=== PATIENT | male | born 1955 | race African-American/Black ===

== ENCOUNTER 2019-06-24 17:52 | Emergency (ER) | payer MEDICARE ==
--- OUTSIDE RECORDS SUMMARY | 2019-06-24 18:13 | XMS REPORT | Continuity of Care Document ---
:1955 External Reference #:[id number] Author Name Jordy Romo M.D. (transmitted by agent of provider Jose E Virk) Address [address] [place] [id number] Problems Active Problems Provider Date Temporomandibular joint disorder Jordy Romo M.D. Onset: 08/13/2014 Oropharyngeal dysphagia Jordy Romo M.D. Onset: 08/13/2014 Disorder of gastrointestinal tract Jordy Romo M.D. Onset: 08/13/2014 Acute Eustachian salpingitis, left ear Jordy Romo M.D. Onset: 2014 Sensorineural hearing loss, bilateral Jordy Romo M.D. Onset: 2014 Chronic rhinitis Jordy Romo M.D. Onset: 06/17/2015 Migraine Ventura Desouza MD Onset: 02/06/2016 Idiopathic peripheral neuropathy Ventura Desouza MD Onset: 02/06/2016 Dizziness and giddiness Ventura Desouza MD Onset: 02/06/2016 Coordination problem Ventura Desouza MD Onset: 02/06/2016 Localized, primary osteoarthritis of the Kwan Herron MD Onset: 05/10/2018 hand Contracture of palmar fascia Kwan Herron MD Onset: 05/10/2018 Tinnitus Jordy Romo M.D. Onset: 06/29/2016 Myoclonus Jordy Romo M.D. Onset: 06/29/2016 Social History Type Date Description Comments Sex Unknown Tobacco Use Start: Unknown Never Smoked Cigarettes Tobacco Use Start: Unknown Never Smoked Cigars Tobacco Use Start: Unknown Never Smoked A Pipe Smokeless Tobacco Never Used Smokeless Tobacco ETOH Use Denies alcohol use Tobacco Use Start: Unknown Patient has never smoked Recreational Drug Use Denies Drug Use Smoking Status Reviewed: 06/13/19 Patient has never smoked Allergies, Adverse Reactions, Alerts Active Allergies Reaction Severity Comments Date Morphine Urticaria 08/13/2014 Sodium (Salt) Low Tolerance 05/23/2019 Amoxicillin Nausea and Vomiting 08/13/2014 Environmental 05/23/2019 Sulfa Antibiotics 08/13/2014 Penicillin VK 05/23/2019 Doxycycline Nausea 05/23/2019 Morphine Sulfate 05/23/2019 Medications Active Medications SIG Qnty Indications Ordering Provider Date Vitamin D-3 1 by mouth every Unknown 1000Unit day Capsules Immunizations Description No Information Available Vital Signs Date Vital Result Comment 06/13/2019 11:31am Height 72 inches 6'0" Weight 187.00 lb Heart Rate 68 /min BP Systolic Sitting 124 mmHg BP Diastolic Sitting 76 mmHg Respiratory Rate 18 /min Pain Level 2 O2 % BldC Oximetry 93 % BMI (Body Mass Index) 25.4 kg/m2 05/10/2018 10:51am Height 72 inches 6'0" Weight 183.00 lb Heart Rate 68 /min BP Systolic Sitting 110 mmHg BP Diastolic Sitting 80 mmHg Body Temperature 97.1 F Pain Level 5 BMI (Body Mass Index) 24.8 kg/m2 Results Description No Information Available Procedures Description No Information Available Medical Devices Description No Information Available Encounters Description No Information Available Assessments Date Code Description Provider 06/13/2019 H92.02 Otalgia, left ear Jordy Romo M.D. 06/13/2019 M26.602 Left temporomandibular joint disorder, Jordy Romo M.D. unspecified Plan of Treatment Future Appointment(s):07/03/2019 9:45 am - Matt Duque M.D., FACC, FASNC at [facility]06/13/2019 - Jordy Romo M.D.H92.02 Otalgia, left earM26.602 Left temporomandibular joint disorder, unspecifiedComments: Suggest warm compresses soft diet and ibuprofen, no other abnormality found. Functional Status Description No Information Available Mental Status Description No Information Available Referrals Description No Information Available
[2019-06-24 18:28] LABS: ABS Basophils 0.1 10^3/ul (0-0.2); ABS Eosinophils 0.2 10^3/ul (0-0.6); ABS Lymphocytes 1.8 10^3/ul (1.0-4.8); ABS Monocytes 0.4 10^3/ul (0-0.8); ABS Neutrophils 2.2 10^3/ul (1.5-7.7); Eosinophil % 4.5 %; Hematocrit 41 % (42-52); Hemoglobin 13.6 g/dL (14.0-18.0); Lymphocyte % 38.6 %; Mean Corpuscular HGB Conc 34 g/dL (31-36); Mean Corpuscular Hemoglobin 29 pg (27-31); Mean Corpuscular Volume 86 fL (80-94); Nucleated Red Blood Cells % 0.2; Platelet Count 182 10^3/uL (150-450); Red Blood Count 4.75 10^6 /uL (4.18-5.48); Red Cell Distribution Width 15 % (10-15); White Blood Count 4.8 10^3/uL (3.5-10.8)
--- NOTE | 2019-06-24 18:37 | ED ---
Upper Extremity Pain - HPI Summary HPI Summary: 63-year-old -[place] male with a significant past medical history of prostatitis, BPH, hyperlipidemia, status post left rib surgery for a benign tumor 30+ years ago, T-cell lymphoma in remission, s/p bone marrow biopsy in 2015 presents to the emergency department today complaining of episodic "numbness and tingling and "the upper left arm for approximately 8 days. Patient denies any history of trauma. Patient denies associated onset with exertion, diaphoresis, shortness of breath, chest pain, abdominal pain. Patient denies family history of acute coronary syndrome. Patient is unsure what is causing his symptoms however he believes it may be due to spending increased time at his computer recently. Patient otherwise feels well and denies fever, chest pain, abdominal pain and urination, rash, shortness of breath. - History of Current Complaint Chief Complaint: EDExtremityUpper Stated Complaint: SEVERE PAIN IN LEFT ARM PER PT Time Seen by Provider: 06/24/19 18:17 Hx Obtained From: Patient Onset/Duration: Started Days Ago Timing: Intermittent, Lasting Minutes Severity Initially: Moderate Severity Currently: Moderate Pain Location: Arm Character: Aching Alleviating Factor(s): OTC Meds Associated Signs & Symptoms: Positive: Numbness/Tingling. Negative: Swelling, Redness, Bruising, Fever, Chest Pain, SOB, Back Pain, Diaphoresis, Nausea, Vomiting - Allergies/Home Medications Allergies/Adverse Reactions: Allergies Allergy/AdvReac Type Severity Reaction Status Date / Time morphine Allergy Severe Itching Verified 06/24/19 17:57 amoxicillin Allergy Mild GI Upset Verified 06/24/19 17:57 doxycycline Allergy Mild GI Upset Verified 06/24/19 17:57 Penicillins Allergy Unknown Verified 06/24/19 17:57 Reaction Details Sulfa (Sulfonamide Allergy Unknown Verified 06/24/19 17:57 Antibiotics) Reaction Details PMH/Surg Hx/FS Hx/Imm Hx Endocrine/Hematology History: Denies: Hx Diabetes Cardiovascular History: Reports: Hx Hypercholesterolemia Denies: Hx Congestive Heart Failure, Hx Hypertension, Hx Pacemaker/ICD Respiratory History: Reports: Hx Pneumonia Denies: Hx Asthma, Other Respiratory Problems/Disorders GI History: Reports: Hx Hiatal Hernia History: Reports: Hx Benign Prostatic Hyperplasia Denies: Hx Renal Disease Musculoskeletal History: Reports: Hx Arthritis Denies: Hx Osteoporosis Sensory History: Reports: Hx Contacts or Glasses Denies: Hx Hearing Aid Opthamlomology History: Reports: Hx Contacts or Glasses Psychiatric History: Denies: Hx Panic Disorder - Cancer History Cancer Type, Location and Year: LYMPHOMA IN NECK Hx Chemotherapy: Yes Hx Radiation Therapy: No - Surgical History Surgery Procedure, Year, and Place: STEM CELL TRANSPLANT 12/2014-EXCISION OF BONE IN UPPER BACK 1983(BENIGN TUMOR REMOVED FROM UPPER BACK LEFT SIDE RIB CAGE) . HAMMER TOE SURGERY 2005-HERNIA REPAIR 2009. HERNIA REPAIR Infectious Disease History: No Infectious Disease History: Denies: Traveled Outside the [place] in Last 30 Days - Social History Alcohol Use: None Substance Use Type: Reports: None Smoking Status (MU): Never Smoked Tobacco Review of Systems Constitutional: Negative Eyes: Negative ENT: Negative Cardiovascular: Negative Respiratory: Negative Gastrointestinal: Negative Genitourinary: Negative Musculoskeletal: Negative Skin: Negative Positive: Paresthesia Psychological: Normal All Other Systems Reviewed And Are Negative: Yes Physical Exam - Summary Physical Exam Summary: Inspection of the left upper extremity reveals full range of motion with no gross deformity, edema, ecchymosis. There is no pain with palpation throughout the upper extremity. Radial pulses 2+ bilaterally. Negative empty can, [place] , AC crossover. Triage Information Reviewed: Yes Vital Signs On Initial Exam: Initial Vitals Temp Pulse Resp BP Pulse Ox 97.3 F 86 16 118/79 99 06/24/19 17:54 06/24/19 17:54 06/24/19 17:54 06/24/19 17:54 06/24/19 17:54 Vital Signs Reviewed: Yes Appearance: Positive: Well-Appearing, No Pain Distress, Well-Nourished Skin: Positive: Warm, Skin Color Reflects Adequate Perfusion Eyes: Positive: EOMI, ADA ENT: Positive: Hearing grossly normal Respiratory/Lung Sounds: Positive: Clear to Auscultation, Breath Sounds Present Cardiovascular: Positive: RRR, S1, S2 Abdomen Description: Positive: Nontender, Soft Bowel Sounds: Positive: Present Musculoskeletal: Positive: Strength/ROM Intact Neurological: Positive: Sensory/Motor Intact, Alert, Oriented to Person Place, Time, Normal Gait, Facial Symmetry, Speech Normal Psychiatric: Positive: Normal, Affect/Mood Appropriate AVPU Assessment: Alert Procedures - Sedation Patient Received Moderate/Deep Sedation with Procedure: No Diagnostics - Vital Signs Vital Signs Temp Pulse Resp BP Pulse Ox 06/24/19 17:54 97.3 F 86 16 118/79 99 - Laboratory Lab Results: Lab Results 06/24/19 Range/Units 18:22 WBC 4.8 (3.5-10.8) 10^3/uL RBC 4.75 (4.18-5.48) 10^6 /uL Hgb 13.6 L (14.0-18.0) g/dL Hct 41 L (42-52) % MCV 86 (80-94) fL MCH 29 (27-31) pg MCHC 34 (31-36) g/dL RDW 15 (10-15) % Plt Count 182 (150-450) 10^3/uL MPV 8.0 (7.4-10.4) fL Neut % (Auto) 45.9 % Lymph % (Auto) 38.6 % [place] % (Auto) 9.3 % Eos % (Auto) 4.5 % Baso % (Auto) 1.7 % Absolute Neuts (auto) 2.2 (1.5-7.7) 10^3/ul Absolute Lymphs (auto) 1.8 (1.0-4.8) 10^3/ul Absolute Monos (auto) 0.4 (0-0.8) 10^3/ul Absolute Eos (auto) 0.2 (0-0.6) 10^3/ul Absolute Basos (auto) 0.1 (0-0.2) 10^3/ul Absolute Nucleated RBC 0.0 10^3/ul Nucleated RBC % 0.2 Result Diagrams: 06/24/19 18:22 06/24/19 18:22 Lab Statement: Any lab studies that have been ordered have been reviewed, and results considered in the medical decision making process. Course/Dx - Course Course Of Treatment: Patient was evaluated in the emergency department stay for left arm pain. Shows some eczematous stable and he is afebrile. EKG was done promptly which showed normal sinus rhythm at a rate of 66 bpm. No evidence of STEMI. Mild left axis deviation, normal ID and QT intervals. Labs returned showing no significant Maladies with a troponin of 0.01. Heart score 3. Serial troponins were deemed unnecessary as the patient has been having symptoms for 8 days. Patient does not appear to have any acute medical problem requiring intervention at this time. Patient is to follow-up with his primary care provider in 3 days for further evaluation and management. - Diagnoses Differential Diagnosis/HQI/PQRI: Positive: Arthritis, Fracture (Closed), Strain , Sprain, Other - thoracic outlet syndrome. Provider Diagnoses: Arm pain, left Discharge ED - Sign-Out/Discharge Documenting (check all that apply): Patient Departure - Discharge Plan Condition: Stable Disposition: HOME Patient Education Materials: Chest Pain (ED), Arm Pain (ED) Referrals: Andrea Dickson MD [Primary Care Provider] - Additional Instructions: You were seen in the emergency department today due to left arm pain. An EKG was done as well as blood tests which showed no evidence of a heart attack at this time. I am unsure what is causing your symptoms however cardiac origin cannot be ruled out. Please follow-up with your primary care physician in 3 days for further evaluation and management of your symptoms. Please return to the emergency department immediately if you develop any new or worsening symptoms. - Billing Disposition and Condition Condition: STABLE Disposition: Home - Attestation Statements Provider Attestation: I was available for consult. This patient was seen by the FELICE. The patient was not presented to, seen by, or examined by me. Scott Bryant MD
[2019-06-24 18:38] LABS: INR 0.92 (0.82-1.09)
[2019-06-24 18:46] LABS: Albumin 4.1 g/dL (3.2-5.2); Albumin/Globulin Ratio 1.5 (1-3); BUN/Creatinine Ratio 15.3 (8-20); Calcium 9.1 mg/dL (8.6-10.3); Globulin 2.7 g/dL (2-4); Total Bilirubin 0.3 mg/dL (0.2-1.0); Total Protein 6.8 g/dL (6.4-8.9)
[2019-06-24 18:48] LABS: Troponin I 0.01 ng/mL (<0.03)
[2019-06-24 19:26] LABS: Potassium 4.3 mmol/L (3.5-5.0)
[2019-06-24 19:33] VITALS: BP 122/83
== END 2019-06-24 19:55 | disposition home or self-care (01) ==
LOC: ED 17:52
DX: M79.602 Pain in left arm (principal); E78.00 Pure hypercholesterolemia, unspecified; Z85.72 Personal history of non-Hodgkin lymphomas
CPT/HCPCS: 36415; 80053; 84484; 85025; 85610; 93005; 99282